=== PATIENT | female | born 1990 | race Caucasian/White ===

== ENCOUNTER → 2020-02-28 | Outpatient (CLI) | payer OTHER ==
[2020-02-28 14:58] LABS: HCG UR SG 1.017 (1.003-1.030)
[2020-02-28 15:01] LABS: BASOPHILS # (AUTO) 0.15 x10^3/uL (0-0.1); BASOPHILS % (AUTO) 1 % (0-1); EOSINOPHILS # (AUTO) 0.34 x10^3/uL (0-0.4); EOSINOPHILS % (AUTO) 3 % (1-7); LYMPHOCYTES # (AUTO) 2.64 x10^3/uL (1-3.4); LYMPHOCYTES % (AUTO) 24 % (22-44); MD NO; MEAN CORPUSCULAR HEMOGLOBIN 32.4 pg (27.0-34.8); MEAN CORPUSCULAR HGB CONC 33.6 g/dL (32.4-35.8); MEAN CORPUSCULAR VOLUME 96.5 fL (80-100); MEAN PLATELET VOLUME 8.5 fL (7.4-10.4); MONOCYTES # (AUTO) 0.65 x10^3/uL (0.2-0.8); MONOCYTES % (AUTO) 6 % (2-9); NEUTROPHILS # (AUTO) 7.43 x10^3/uL (1.8-6.8); NEUTROPHILS % (AUTO) 66 % (42-75); PLATELET COUNT 327 x10^3/uL (130-400); RED CELL DISTRIBUTION WIDTH 13.5 % (9.6-15.2)
[2020-02-28 15:08] LABS: ANION GAP 6 mmol/L (5-15); CALCIUM 8.8 mg/dL (8.5-10.1); CHLORIDE 109 mmol/L (98-107); CREATININE 0.93 mg/dL (0.55-1.02)
== END | disposition home or self-care (01) ==
LOC: STAR 14:12
PROVIDERS: ATTEND Obstetrics & Gynecology
DX: Z01.818 Encounter for other preprocedural examination (principal); G89.29 Other chronic pain; R10.2 Pelvic and perineal pain
CPT/HCPCS: 36415; 80048; 81025; 85025

== ENCOUNTER 2020-03-06 05:44 | Day surgery (SDC) | payer OTHER ==
[~2020-03-06] VITALS: Ht 175.3 cm; Wt 98.0 kg
[2020-03-06] MEDS ORDERED: LACTATED RINGERS 1,000 ML IV SCH (06:07)
[2020-03-06 06:21] LABS: HCG UR SG 1.023 (1.003-1.030)
[2020-03-06] MEDS ORDERED: CHLORHEXIDINE 15 ML UDC MM ONE (06:30)
[2020-03-06] MEDS ORDERED: LIDOCAINE-MPF 1%, 2ML INFIL ONE (06:30)
[2020-03-06 06:38] VITALS: BP 115/80
[2020-03-06] MEDS ORDERED: BUPIVACAINE/PF 0.25% ONE (06:46)
[2020-03-06] MEDS ORDERED: SCOPOLAMINE 1MG PATCH TD ONE (06:53)
[2020-03-06] MEDS ORDERED: METHYLENE BLUE 10 MG/ML 10ML ONE (06:58)
[2020-03-06] MEDS ORDERED: MIDAZOLAM 1 MG/ML, 2ML ONE (06:58)
[2020-03-06] MEDS ORDERED: FENTANYL PF 250 MCG/5ML ONE (06:58)
[2020-03-06] MEDS ORDERED: PROPOFOL 100 ML ONE (06:59)
[2020-03-06] MEDS ORDERED: SCOPOLAMINE 1MG PATCH TD SCH (07:00)
[2020-03-06] MEDS ORDERED: SUGAMMADEX 200 MG/2 ML IVPush ONE (07:04)
[2020-03-06] MEDS ORDERED: DEXAMETHASONE 4 MG/ML, 1ML ONE (07:04)
[2020-03-06] MEDS ORDERED: ONDANSETRON 2MG/ML, 2ML ONE (07:04)
[2020-03-06] MEDS ORDERED: ROCURONIUM 10 MG/ML,10ML ONE (07:04)
[2020-03-06] MEDS ORDERED: HYDROmorphone 1 MG/ML, 1ML INJ IVPush PRN (07:30)
[2020-03-06] MEDS ORDERED: HALOPERIDOL 5 MG/ML IV PRN (07:30)
[2020-03-06] MEDS ORDERED: MEPERIDINE/PF 25MG/0.5ML IVPush PRN (07:30)
[2020-03-06] MEDS ORDERED: ACETAMINOPHEN 325 MG TABLET PO PRN (07:30)
[2020-03-06] MEDS ORDERED: LORazepam 2 MG/ML, 1ML IVPush PRN (07:30)
[2020-03-06] MEDS ORDERED: ONDANSETRON 2MG/ML, 2ML IVPush PRN (07:30)
[2020-03-06] MEDS ORDERED: PROMETHAZINE 25 MG SUPP PR PRN (07:30)
[2020-03-06] MEDS ORDERED: PROMETHAZINE 25 MG/ML, 1ML IVPush PRN (07:30)
[2020-03-06] MEDS ORDERED: OXYcodone 5 MG/5 ML ORAL.SOL UDC PO PRN (07:30)
[2020-03-06] MEDS ORDERED: FENTANYL PF 100 MCG/2ML ONE ×2 (07:58→08:15)
[2020-03-06] MEDS ORDERED: KETOROLAC 30 MG/1 ML ONE (07:59)
[2020-03-06] MEDS: FENTANYL PF 100 MCG/2ML IV PRN ×3 (08:01→08:22)
[2020-03-06] MEDS ORDERED: LORazepam 2 MG/ML, 1ML ONE (08:15)
[2020-03-06] MEDS ORDERED: KETOROLAC 30 MG/1 ML IVPush ONE (08:30)
[2020-03-06] MEDS ORDERED: PROMETHAZINE 25 MG/ML, 1ML ONE (08:39)
== END 2020-03-06 10:20 | disposition home or self-care (01) ==
LOC: OUT 05:44
PROVIDERS: ATTEND Obstetrics & Gynecology
DX: R10.2 Pelvic and perineal pain (principal); Z11.59 Encounter for screening for other viral diseases; G89.29 Other chronic pain; N73.6 Female pelvic peritoneal adhesions (postinfective); N94.6 Dysmenorrhea, unspecified; N94.10 Unspecified dyspareunia; F41.9 Anxiety disorder, unspecified; E66.9 Obesity, unspecified; Z68.32 Body mass index [BMI] 32.0-32.9, adult; Z90.49 Acquired absence of other specified parts of digestive tract; Z91.040 Latex allergy status; Z80.41 Family history of malignant neoplasm of ovary
CPT/HCPCS: 36415; 49320; 58350; 81025; 87635; J1100; J1885; J2060; J2250; J2405; J2550; J2704; J3010; J3490; J7120; Q9968